=== PATIENT | male | born 1950 | race Caucasian/White ===

== ENCOUNTER 2022-12-11 17:26 | Inpatient (IN) | payer OTHER ==
[~2022-12-11] VITALS: Ht 185.4 cm; Wt 114.8 kg
[2022-12-11 17:37] VITALS: BP_SYST 141
[2022-12-11 18:20] LABS: BASOPHILS # (AUTO) 0.1 K/uL (0.0-0.2); BASOPHILS % (AUTO) 0.8 % (0.0-2.0); EOSINOPHILS # (AUTO) 0.2 K/uL (0.0-0.4); EOSINOPHILS % (AUTO) 2.5 % (0.0-4.0); HEMATOCRIT 41.2 % (36-54); HEMOGLOBIN 13.4 g/dL (14.0-18.0); LYMPHOCYTES # (AUTO) 1.4 K/uL (1.0-5.5); LYMPHOCYTES % (AUTO) 17.8 % (20.5-51.5); MEAN CORPUSCULAR HEMOGLOBIN 29 pg (27-31); MEAN CORPUSCULAR HGB CONC 33 % (32-36); MEAN CORPUSCULAR VOLUME 88 fL (79.0-98.0); MONOCYTES # (AUTO) 0.7 K/uL (0.0-1.0); MONOCYTES % (AUTO) 8.3 % (1.7-9.3); NEUTROPHILS # (AUTO) 5.6 K/uL (1.8-7.7); NEUTROPHILS % (AUTO) 70.6 % (40.0-70.0); PLATELET COUNT (AUTO) 225 K/uL (130-430); RED BLOOD CELL COUNT(AUTO) 4.69 MIL/uL (4.2-6.2); RED CELL DISTRIBUTION WIDTH 16.1 % (9.0-15.0)
[2022-12-11 18:27] LABS: ANION GAP 6 (5-15); CALCIUM 8.9 mg/dL (8.4-11.0); CHLORIDE 102 mmol/L (98-107); CREATININE 1.16 mg/dL (0.55-1.30); GLUCOSE 141 mg/dL (70-99); UREA NITROGEN, BLOOD 24 mg/dL (8-21)
[2022-12-11 18:30] LABS: PROTHROMBIN TIME 10.4 SECS (9.5-12.5)
[2022-12-11] MEDS ORDERED: ASPIRIN 81 MG TAB.CHEW PO ONE (18:30)
[2022-12-11] MEDS ORDERED: iohexoL 350 mgI/mL, 100 ML INFUS..BTL IV ONE (18:38)
[2022-12-11 18:41] LABS: ALANINE AMINOTRANSFERASE 27 U/L (12-78); ALBUMIN 3.4 g/dL (3.4-4.8); ASPARTATE AMINOTRANSFERASE 18 U/L (10-37); TOTAL BILIRUBIN 0.5 mg/dL (0.0-1.0)
[2022-12-11] MEDS ORDERED: SACC250C3 PO (21:50)
[2022-12-11] MEDS ORDERED: DICY10CA13 PO (21:54)
[2022-12-11] MEDS ORDERED: ALLO300T2 PO (21:56)
[2022-12-11] MEDS ORDERED: HYDR25TA4 PO (21:56)
[2022-12-11] MEDS ORDERED: LOSA100T4 PO (21:57)
[2022-12-11] MEDS ORDERED: CYM30 PO (21:58)
[2022-12-11] MEDS ORDERED: CHOL500013 PO (21:59)
[2022-12-11] MEDS ORDERED: ASCO500T20 PO (22:00)
[2022-12-11] MEDS ORDERED: TAMS-11 PO (22:02)
[2022-12-11] MEDS ORDERED: WHEA98PO PO (22:05)
[2022-12-11] MEDS ORDERED: INDO50CA90 PO (22:06)
[2022-12-11] MEDS ORDERED: NAPR-1172 PO (22:07)
[2022-12-11] MEDS ORDERED: LEVO5TAB13 PO (22:08)
[2022-12-11] MEDS ORDERED: ONDA-8 TL (22:18)
[2022-12-11] MEDS ORDERED: ALBMDI INH (22:25)
[2022-12-11] MEDS ORDERED: FLUT1BLS14 IH (22:33)
[2022-12-12 01:20] VITALS: BP_SYST 134
[2022-12-12 01:30] VITALS: BP_SYST 134
[2022-12-12 07:29] LABS: ALANINE AMINOTRANSFERASE 26 U/L (12-78); ALBUMIN 3.2 g/dL (3.4-4.8); ANION GAP 5 (5-15); ASPARTATE AMINOTRANSFERASE 19 U/L (10-37); CALCIUM 8.9 mg/dL (8.4-11.0); CHLORIDE 102 mmol/L (98-107); CREATININE 0.92 mg/dL (0.55-1.30); GLUCOSE 111 mg/dL (70-99); TOTAL BILIRUBIN 0.7 mg/dL (0.0-1.0); UREA NITROGEN, BLOOD 18 mg/dL (8-21)
[2022-12-12 07:34] LABS: BASOPHILS # (AUTO) 0.1 K/uL (0.0-0.2); BASOPHILS % (AUTO) 0.9 % (0.0-2.0); EOSINOPHILS # (AUTO) 0.4 K/uL (0.0-0.4); EOSINOPHILS % (AUTO) 4.9 % (0.0-4.0); HEMATOCRIT 41.2 % (36-54); HEMOGLOBIN 13.6 g/dL (14.0-18.0); LYMPHOCYTES # (AUTO) 1.6 K/uL (1.0-5.5); LYMPHOCYTES % (AUTO) 22.4 % (20.5-51.5); MEAN CORPUSCULAR HEMOGLOBIN 29 pg (27-31); MEAN CORPUSCULAR HGB CONC 33 % (32-36); MEAN CORPUSCULAR VOLUME 88 fL (79.0-98.0); MONOCYTES # (AUTO) 0.8 K/uL (0.0-1.0); MONOCYTES % (AUTO) 10.7 % (1.7-9.3); NEUTROPHILS # (AUTO) 4.4 K/uL (1.8-7.7); NEUTROPHILS % (AUTO) 61.1 % (40.0-70.0); PLATELET COUNT (AUTO) 215 K/uL (130-430); RED BLOOD CELL COUNT(AUTO) 4.71 MIL/uL (4.2-6.2); RED CELL DISTRIBUTION WIDTH 16.4 % (9.0-15.0); WHITE BLOOD COUNT (AUTO) 7.2 K/uL (4.8-10.8)
[2022-12-12 08:44] VITALS: BP_SYST 118
[2022-12-12 12:16] VITALS: BP_SYST 118
[2022-12-12 16:45] VITALS: BP_SYST 125
[2022-12-12] MEDS ORDERED: CLOPIDOGREL BISULFATE 75 MG TABLET PO ONE (18:30)
[2022-12-12 19:15] LABS: THYROID STIMULATING HORMONE 4.6 uIu/mL (0.34-4.82)
[2022-12-12 22:34] VITALS: BP_SYST 125
[2022-12-13 01:04] VITALS: BP_SYST 146
[2022-12-13 05:37] VITALS: BP_SYST 141
[2022-12-13 07:18] LABS: BASOPHILS # (AUTO) 0.1 K/uL (0.0-0.2); BASOPHILS % (AUTO) 0.8 % (0.0-2.0); EOSINOPHILS # (AUTO) 0.3 K/uL (0.0-0.4); EOSINOPHILS % (AUTO) 3.9 % (0.0-4.0); HEMATOCRIT 41.9 % (36-54); HEMOGLOBIN 13.7 g/dL (14.0-18.0); LYMPHOCYTES # (AUTO) 1.7 K/uL (1.0-5.5); LYMPHOCYTES % (AUTO) 19.7 % (20.5-51.5); MEAN CORPUSCULAR HEMOGLOBIN 29 pg (27-31); MEAN CORPUSCULAR HGB CONC 33 % (32-36); MEAN CORPUSCULAR VOLUME 87 fL (79.0-98.0); MONOCYTES # (AUTO) 0.9 K/uL (0.0-1.0); NEUTROPHILS # (AUTO) 5.7 K/uL (1.8-7.7); NEUTROPHILS % (AUTO) 65.6 % (40.0-70.0); PLATELET COUNT (AUTO) 217 K/uL (130-430); RED CELL DISTRIBUTION WIDTH 15.9 % (9.0-15.0); WHITE BLOOD COUNT (AUTO) 8.7 K/uL (4.8-10.8)
[2022-12-13 07:33] LABS: ALANINE AMINOTRANSFERASE 25 U/L (12-78); ALBUMIN 3.1 g/dL (3.4-4.8); ANION GAP 7 (5-15); ASPARTATE AMINOTRANSFERASE 17 U/L (10-37); CALCIUM 8.8 mg/dL (8.4-11.0); CHLORIDE 102 mmol/L (98-107); CREATININE 0.88 mg/dL (0.55-1.30); GLUCOSE 107 mg/dL (70-99); TOTAL BILIRUBIN 0.9 mg/dL (0.0-1.0); UREA NITROGEN, BLOOD 17 mg/dL (8-21)
[2022-12-13 07:40] VITALS: BP_SYST 127
[2022-12-13] MEDS: CLOPIDOGREL BISULFATE 75 MG TABLET PO SCH (08:17)
[2022-12-13] MEDS: ASPIRIN 81 MG TAB.CHEW PO SCH (08:17)
[2022-12-13 14:51] VITALS: BP_SYST 135
[2022-12-13 22:53] VITALS: BP_SYST 140
[2022-12-14 00:02] VITALS: BP_SYST 138
[2022-12-14 06:15] LABS: BASOPHILS % (AUTO) 0.6 % (0.0-2.0); EOSINOPHILS # (AUTO) 0.5 K/uL (0.0-0.4); EOSINOPHILS % (AUTO) 6.4 % (0.0-4.0); HEMATOCRIT 42.2 % (36-54); HEMOGLOBIN 14.1 g/dL (14.0-18.0); LYMPHOCYTES # (AUTO) 1.5 K/uL (1.0-5.5); LYMPHOCYTES % (AUTO) 19.6 % (20.5-51.5); MEAN CORPUSCULAR HEMOGLOBIN 29 pg (27-31); MEAN CORPUSCULAR HGB CONC 33 % (32-36); MEAN CORPUSCULAR VOLUME 87 fL (79.0-98.0); MONOCYTES # (AUTO) 0.8 K/uL (0.0-1.0); MONOCYTES % (AUTO) 10.3 % (1.7-9.3); NEUTROPHILS # (AUTO) 4.8 K/uL (1.8-7.7); NEUTROPHILS % (AUTO) 63.1 % (40.0-70.0); PLATELET COUNT (AUTO) 207 K/uL (130-430); RED BLOOD CELL COUNT(AUTO) 4.87 MIL/uL (4.2-6.2); RED CELL DISTRIBUTION WIDTH 15.9 % (9.0-15.0); WHITE BLOOD COUNT (AUTO) 7.6 K/uL (4.8-10.8)
[2022-12-14 07:08] LABS: ALANINE AMINOTRANSFERASE 24 U/L (12-78); ALBUMIN 3.1 g/dL (3.4-4.8); ANION GAP 9 (5-15); ASPARTATE AMINOTRANSFERASE 20 U/L (10-37); CALCIUM 8.7 mg/dL (8.4-11.0); CHLORIDE 103 mmol/L (98-107); CREATININE 1.03 mg/dL (0.55-1.30); GLUCOSE 106 mg/dL (70-99); TOTAL BILIRUBIN 0.8 mg/dL (0.0-1.0); UREA NITROGEN, BLOOD 15 mg/dL (8-21)
[2022-12-14 08:12] VITALS: BP_SYST 141
[2022-12-14] MEDS: CLOPIDOGREL BISULFATE 75 MG TABLET PO SCH (09:08)
[2022-12-14] MEDS: ASPIRIN 81 MG TAB.CHEW PO SCH (09:08)
[2022-12-14 11:31] VITALS: BP_SYST 128
[2022-12-14] MEDS ORDERED: ALBUTEROL MDI INHALATION 8 GM INH INH PRN (16:30)
[2022-12-14] MEDS ORDERED: ONDANSETRON 4 MG ODT TAB TL PRN (16:30)
[2022-12-14 16:54] VITALS: BP_SYST 132
[2022-12-14] MEDS ORDERED: ALBUTEROL SULFATE 0.083% 2.5 MG/3 ML VIAL.NEB INH PRN (18:00)
[2022-12-14] MEDS: ALBUTEROL SULFATE 0.083% 2.5 MG/3 ML VIAL.NEB INH SCH (19:56)
[2022-12-14] MEDS: BUDESONIDE 0.5 MG/2 ML AMPUL.NEB INH SCH (19:59)
[2022-12-14 20:00] VITALS: BP_SYST 124
[2022-12-14] MEDS: LACTOBACILLUS RHAMNOSUS GG 1 CAP CAPSULE PO SCH (20:53)
[2022-12-14] MEDS ORDERED: INDOMETHACIN PO SCH (21:00)
[2022-12-14] MEDS ORDERED: FLUTICASONE 250 mCg/SALMETEROL 50 mCg DISKUS W.DEV IH SCH (21:00)
[2022-12-14] MEDS ORDERED: NAPROXEN 250 MG TABLET PO PRN (21:00)
[2022-12-15] MEDS: ALBUTEROL SULFATE 0.083% 2.5 MG/3 ML VIAL.NEB INH SCH ×3 (00:07→14:19)
[2022-12-15 00:11] VITALS: BP_SYST 136
[2022-12-15] MEDS: BUDESONIDE 0.5 MG/2 ML AMPUL.NEB INH SCH (07:16)
[2022-12-15 08:00] VITALS: BP_SYST 134
[2022-12-15] MEDS: ASPIRIN 81 MG TAB.CHEW PO SCH (08:20)
[2022-12-15] MEDS: LACTOBACILLUS RHAMNOSUS GG 1 CAP CAPSULE PO SCH (08:20)
[2022-12-15] MEDS: CLOPIDOGREL BISULFATE 75 MG TABLET PO SCH (08:20)
[2022-12-15] MEDS ORDERED: ALLOPURINOL 300 MG TABLET (ZYLOPRIM) PO SCH (09:00)
[2022-12-15] MEDS ORDERED: PSYLLIUM HUSK 1 PKT PACKET PO SCH (09:00)
[2022-12-15] MEDS ORDERED: TAMSULOSIN HCL 0.4 MG CAP PO SCH (09:00)
[2022-12-15] MEDS ORDERED: SACCHAROMYCES BOULARDII 250 MG CAPSULE (FLORASTOR) PO SCH (09:00)
[2022-12-15] MEDS ORDERED: WHEAT DEXTRIN PO SCH (09:00)
[2022-12-15] MEDS ORDERED: LORATADINE 10 MG TABLET PO SCH (09:00)
[2022-12-15] MEDS ORDERED: CHOLECALCIFEROL (VITAMIN D3) 5,000 UNIT TABLET PO SCH (09:00)
[2022-12-15] MEDS ORDERED: DICYCLOMINE HCL 10 MG CAPSULE PO SCH (09:00)
[2022-12-15] MEDS ORDERED: DULoxetine HCL 30 MG CAPSULE.DR (CYMBALTA) PO SCH (09:00)
[2022-12-15] MEDS ORDERED: NON-FORMULARY MEDICATION (Levocetirizine Dihydrochloride 1 TAB) PO SCH (09:00)
[2022-12-15] MEDS ORDERED: ASCORBIC ACID 500 MG TABLET PO SCH (09:00)
[2022-12-15 11:36] VITALS: BP_SYST 129
[2022-12-15] MEDS ORDERED: ATORVASTATIN 20 MG TABLET PO ONE (14:45)
[2022-12-15 14:47] VITALS: BP_SYST 129
[2022-12-15] MEDS ORDERED: LACT1CAP57 PO (15:10)
[2022-12-15] MEDS ORDERED: PSYL3.4P5 PO (15:10)
[2022-12-15] MEDS ORDERED: BUDE0.5A INH (15:10)
[2022-12-15] MEDS ORDERED: ASA81 PO (15:10)
[2022-12-15] MEDS ORDERED: LIP20 PO (15:10)
[2022-12-15] MEDS ORDERED: CLOP75TA32 PO (15:10)
[2022-12-16] MEDS ORDERED: ATORVASTATIN 20 MG TABLET PO SCH (09:00)
== END 2022-12-15 16:55 | disposition home health service (06) | DRG 65 ==
LOC: SED 17:26 → STU 19:17
PROVIDERS: ADMIT Internal Medicine; ATTEND Internal Medicine
DX: I63.9 Cerebral infarction, unspecified (principal); G93.49 Other encephalopathy; G93.89 Other specified disorders of brain; I10 Essential (primary) hypertension; Z96.652 Presence of left artificial knee joint; Z20.822 Contact with and (suspected) exposure to COVID-19; J45.909 Unspecified asthma, uncomplicated; Z79.899 Other long term (current) drug therapy; Z88.1 Allergy status to other antibiotic agents; Z82.3 Family history of stroke; Z82.49 Family history of ischemic heart disease and other diseases of the circulatory system; Z87.891 Personal history of nicotine dependence; Z90.49 Acquired absence of other specified parts of digestive tract; R29.704 NIHSS score 4
CPT/HCPCS: 36415; 70450-TC; 70496; 70498; 70551; 71045; 76376; 80053; 80061; 82962; 83037; 83880; 84443; 84484; 85025; 85379; 85610-TC; 85730-TC; 86886; 86900; 86901; 92610-GN; 93005; 93306; 94640; 94760; 97116-GP; 97163-GP; 99291; G0378; J7613; J7626; Q9967